=== PATIENT | female | born 1990 | race African-American/Black ===

== ENCOUNTER 2017-05-06 15:12 | Emergency (ER) | payer OTHER ==
[~2017-05-06] VITALS: Ht 157.5 cm; Wt 77.2 kg
[~2017-05-06 15:12] MED LIST: HYDR-3534 PO
[2017-05-06 15:14] VITALS: BP 117/62; PULSE 78; RESP 20; TEMP 98.8; O2SAT 100
--- NOTE | 2017-05-06 15:40 | PD ---
HPI Chief Complaint: Related Problem Time Seen by Provider: 15:24 Travel History International Travel<30 days: No Contact w/Intl Traveler<30days: No Traveled to known affect area: No History of Present Illness HPI C/O VAG SPOTTING, NO ACTUAL ABD CRAMPY PAIN, ONSET YESTERDAY, HAS AN UPCOMING OB APPT, NO ULTRASOUND DONE FOR LOCATION. DIAGNOSED AT CLINIC, TOLD SHE IS ABOUT 8 WEEKS GESTATION. PFSH Past Medical History ?: LMP: 03/10/18 : 1 Para: 0 : 1 Social History Alcohol Use: Yes Tobacco Use: No Substance Use: No Allergies-Medications (Allergen,Severity, Reaction): Coded Allergies: No Known Allergies (Verified , 05/06/17) Reported Meds & Prescriptions Reported Meds & Active Scripts Active No Active Prescriptions or Reported Medications Review of Systems Except as stated in HPI: all other systems reviewed are Neg Genitourinary: Positive: Vaginal Bleeding (SPOTTING IS VERY LIGHT) Physical Exam Narrative GENERAL: SKIN: Warm and dry. HEAD: Atraumatic. Normocephalic. EYES: Pupils equal and round. No scleral icterus. No injection or drainage. ENT: No nasal bleeding or discharge. Mucous membranes pink and moist. NECK: Trachea midline. No JVD. CARDIOVASCULAR: Regular rate and rhythm. RESPIRATORY: No accessory muscle use. Clear to auscultation. Breath sounds equal bilaterally. GASTROINTESTINAL: Abdomen soft, non-tender, nondistended. MUSCULOSKELETAL: Extremities without clubbing, cyanosis, or edema. No obvious deformities. NEUROLOGICAL: Awake and alert. No obvious cranial nerve deficits. Motor grossly within normal limits. Five out of 5 muscle strength in the arms and legs. Normal speech. PSYCHIATRIC: Appropriate mood and affect; insight and judgment normal. Data Data Last Documented VS Vital Signs Date Time Temp Pulse Resp B/P Pulse Ox O2 Delivery O2 Flow Rate FiO2 05/06/17 15:14 98.8 78 20 117/62 100 Room Air Orders Beta Hcg (Quant/Titer) (05/06/17 15:24) Complete Blood Count With Diff (05/06/17 15:24) Basic Metabolic Panel (Bmp) (05/06/17 15:24) Complete Rh (05/06/17 15:24) Urinalysis - C+S If Indicated (05/06/17 15:24) Iv Access Insert/Monitor (05/06/17 15:24) Us Pelvis (Ques Pr/Ect)W Trans (05/06/17 ) Labs Laboratory Tests Test 05/06/17 05/06/17 15:30 15:40 White Blood Count 8.4 TH/MM3 Red Blood Count 3.73 MIL/MM3 Hemoglobin 10.5 GM/DL Hematocrit 32.5 % Mean Corpuscular Volume 87.0 FL Mean Corpuscular Hemoglobin 28.2 PG Mean Corpuscular Hemoglobin 32.4 % Concent Red Cell Distribution Width 13.1 % Platelet Count 184 TH/MM3 Mean Platelet Volume 9.3 FL Neutrophils (%) (Auto) 67.8 % Lymphocytes (%) (Auto) 22.1 % Monocytes (%) (Auto) 9.1 % Eosinophils (%) (Auto) 0.7 % Basophils (%) (Auto) 0.3 % Neutrophils # (Auto) 5.7 TH/MM3 Lymphocytes # (Auto) 1.9 TH/MM3 Monocytes # (Auto) 0.8 TH/MM3 Eosinophils # (Auto) 0.1 TH/MM3 Basophils # (Auto) 0.0 TH/MM3 CBC Comment DIFF FINAL Differential Comment Sodium Level 138 MEQ/L Potassium Level 3.6 MEQ/L Chloride Level 106 MEQ/L Carbon Dioxide Level 25.9 MEQ/L Anion Gap 6 MEQ/L Blood Urea Nitrogen 11 MG/DL Creatinine 0.66 MG/DL Estimat Glomerular Filtration 131 ML/MIN Rate Random Glucose 75 MG/DL Calcium Level 8.6 MG/DL Human Chorionic Gonadotropin, [address]122 MIU/ML Quant Blood Type O POSITIVE Rho(D) Type POSITIVE Urine Color YELLOW Urine Turbidity CLEAR Urine pH 6.0 Urine Specific [place] 1.023 Urine Protein NEG mg/dL Urine Glucose (UA) NEG mg/dL Urine Ketones 10 mg/dL Urine Occult Blood NEG Urine Nitrite NEG Urine Bilirubin NEG Urine Urobilinogen LESS THAN 2.0 MG/DL Urine Leukocyte Esterase NEG Urine WBC LESS THAN 1 /hpf Urine Squamous Epithelial 1 /hpf Cells Urine Mucus FEW /lpf Microscopic Urinalysis Comment CULT NOT INDICATED MDM Medical Decision Making Medical Screen Exam Complete: Yes Emergency Medical Condition: Yes Medical Record Reviewed: Yes Differential Diagnosis UTI V ECTOPIC V IUP Narrative Course DURING EVALUATION FOUND TO HAVE NO UTI, RH POSITIVE, AND FINALLY ULTRASOUND SHOWED AN IUP....PT WILL BE D/C WITH THREATEN MISCARRIAGE AND ADVISED TO AVOID INTROITAL INSERTION AND TO FOLLOW UP WITH OB Diagnosis Primary Impression: Threatened Patient Instructions: General Instructions, Threatened Miscarriage (ED) Additional Instructions: your is in your uterus and you are about 7weeks and 4days . avoid sex, douching or placing tampons into vaginal canal until 1 week after bleeding stops, follow with your obgyn for further care. Scripts No Active Prescriptions or Reported Meds Disposition: DISCHARGE HOME Condition: Stable Wilfred Holm MD May 06, 2017 15:40
[2017-05-06 16:28] LABS: AUTOMATED NEUTROPHIL # 5.7 TH/MM3 (1.8-7.7); BASOPHIL % 0.3 % (0.0-2.0); EOSINOPHIL # 0.1 TH/MM3 (0-0.4); EOSINOPHIL % 0.7 % (0.0-4.0); HEMATOCRIT 32.5 % (35.0-46.0); HEMO FLAGS DIFF FINAL; LYMPH % 22.1 % (9.0-44.0); LYMPHOCYTE # 1.9 TH/MM3 (1.0-4.8); MEAN CORPUSCULAR HEMOGLOBIN 28.2 PG (27.0-34.0); MEAN CORPUSCULAR HGB CONC 32.4 % (32.0-36.0); MONO % 9.1 % (0.0-8.0); NEUT % 67.8 % (16.0-70.0); PLATELET COUNT 184 TH/MM3 (150-450); RED BLOOD COUNT 3.73 MIL/MM3 (4.00-5.30); RED CELL DISTRIBUTION WIDTH 13.1 % (11.6-17.2); WHITE BLOOD COUNT 8.4 TH/MM3 (4.0-11.0)
[2017-05-06 16:34] LABS: BLOOD, URINE NEG (NEG); COMMENT (UR) CULT NOT INDICATED; CULTURE IF INDICATED CULT NOT INDICATED; GLUCOSE,URINE NEG (NEG); KETONE, URINE 10 mg/dL (NEG); MUCUS URINE FEW /lpf (OCC); NITRITE,URINE NEG (NEG); SQUAMOUS EPITHELIAL CELL URINE 1 /hpf (0-5); URINE COLOR YELLOW (YELLW/STRAW)
[2017-05-06 16:41] LABS: BICARBONATE 25.9 MEQ/L (21.0-32.0); POTASSIUM 3.6 MEQ/L (3.5-5.1)
--- NOTE | 2017-05-06 18:32 | RADRPT ---
EXAM DATE/TIME: 05/06/2017 17:23 [facility] COMPARISON: No previous studies available for comparison. INDICATIONS : Bleeding. LAB(S): [facility] MEDICAL HISTORY : None. SURGICAL HISTORY : None. ENCOUNTER: Initial ACUITY: 1 day PAIN SCORE: 0/10 LOCATION: Bilateral pelvis MEASUREMENTS: UTERUS: 9.1 x 6.8 x 5.7 cm ENDOMETRIAL STRIPE: 13 mm RIGHT OVARY: 3.5 x 2.4 x 2.5 cm LEFT OVARY: 3.1 x 2.2 x 1.5 cm FREE FLUID: Trace CROWN RUMP LENGTH: 1.52 = 7 WKS 6 DAYS FHR: 150 BPM FINDINGS: UTERUS: Gestational sac is identified within the uterus. Approximate gestational age by mean sac diameter is 7 weeks 4 days. pole is identified with approximate gestational age by crown-rump length of 7 w eeks 6 days. heart activity is identified with a heart rate of 150 beats per minute. Yolk sac is seen. Nabothian cysts noted. RIGHT OVARY: Ovary contains no mass or significant cystic lesion. LEFT OVARY: Ovary contains no mass or significant cystic lesion. MISCELLANEOUS: Trace free fluid. CONCLUSION: Intrauterine identified. pole is seen. heart activity is identified with approx imate heart rate of 150 beats per minute. Andrew Schreiber MD on May 06, 2017 at 18:26 Board Certified Radiologist. This report was verified electronically.
[2017-05-24] MEDS ORDERED: PNV11TAB PO (10:02)
[2017-05-24] MEDS ORDERED: FERRTAB2 PO (10:02)
[2017-05-30] MEDS ORDERED: METR-1 PO (10:00)
== END 2017-05-06 18:41 | disposition home or self-care (01) ==
LOC: NEPD 15:12
DX: O20.0 Threatened abortion (principal); Z3A.08 8 weeks gestation of pregnancy
CPT/HCPCS: 76700; 76817; 80048; 81001; 84702; 85025; 86901; 99284

== ENCOUNTER 2017-05-10 16:32 | Emergency (ER) | payer OTHER ==
[~2017-05-10] VITALS: Ht 157.5 cm; Wt 76.0 kg
[2017-05-10 16:33] VITALS: BP 111/74; PULSE 77; TEMP 98.1; O2SAT 100
--- NOTE | 2017-05-10 16:37 | PD ---
Physical Exam Date Seen by Provider: May 10, 2017 Time Seen by Provider: 16:35 Narrative 27 YOBF WITH 9/10 SINGH SINCE LAST NIGHT. + N/V. H/O MIGRAINES. VS REVIEWED WAITING FOR BED PLACEMENT Data Data Last Documented VS Vital Signs Date Time Temp Pulse Resp B/P Pulse Ox O2 Delivery O2 Flow Rate FiO2 05/10/17 16:33 98.1 77 111/74 100 MDM Supervised Visit with EDDY: No Scripts No Active Prescriptions or Reported Meds Dk Sow May 10, 2017 16:37
[2017-05-10] MEDS ORDERED: ACETAMINOPHEN 325 MG TAB PO ONE (19:15)
[2017-05-10] MEDS ORDERED: diphenhydrAMINE HCL 50 MG/ML VIAL IVP ONE (19:15)
[2017-05-10] MEDS ORDERED: SODIUM CHLOR 0.9% 1000 ML INJ 1,000 ML IV ONE (19:15)
[2017-05-10] MEDS ORDERED: METOCLOPRAMIDE HCL 10 MG/2 ML VIAL IVP ONE (19:15)
--- NOTE | 2017-05-10 19:19 | PD ---
HPI Chief Complaint: Headache Time Seen by Provider: 19:10 Travel History International Travel<30 days: No Contact w/Intl Traveler<30days: No Traveled to known affect area: No History of Present Illness HPI 27 y/o chance for evaluation of headache. Symptoms started last night. She describes it as a pulsating right-sided frontal headache which is constant, associated with nausea and 2 episodes of emesis today. She reports a history of migraines, her current headache is consistent with migraines. She endorses some sensitivity to light, sound. She tried using Tylenol yesterday however she has not taken any medication today to help with her symptoms. She has no other complaints at this time. She was seen here 4 days ago and had an ultrasound revealing an acute uterine with heart tones. [facility] Past Medical History ?: LMP: 10 March 2017 : 1 Para: 0 : 1 Social History Alcohol Use: No Tobacco Use: No Substance Use: No Allergies-Medications (Allergen,Severity, Reaction): Coded Allergies: No Known Allergies (Verified , 05/10/17) Reported Meds & Prescriptions Reported Meds & Active Scripts Active No Active Prescriptions or Reported Medications Review of Systems Except as stated in HPI: all other systems reviewed are Neg Physical Exam Narrative GENERAL: Well-developed well-nourished female in no acute distress SKIN: Warm and dry. HEAD: Atraumatic. Normocephalic. EYES: Pupils equal and round. No scleral icterus. No injection or drainage. ENT: No nasal bleeding or discharge. Mucous membranes pink and moist. NECK: Trachea midline. No JVD. CARDIOVASCULAR: Regular rate and rhythm. No murmur appreciated. RESPIRATORY: No accessory muscle use. Clear to auscultation. Breath sounds equal bilaterally. GASTROINTESTINAL: Abdomen soft, non-tender, nondistended. Hepatic and splenic margins not palpable. MUSCULOSKELETAL: No obvious deformities. No clubbing. No cyanosis. No edema. NEUROLOGICAL: Awake and alert. No obvious cranial nerve deficits. Motor grossly within normal limits. Normal speech. PSYCHIATRIC: Appropriate mood and affect; insight and judgment normal. Data Data Last Documented VS Vital Signs Date Time Temp Pulse Resp B/P Pulse Ox O2 Delivery O2 Flow Rate FiO2 05/10/17 20:16 16 05/10/17 16:33 98.1 77 111/74 100 Orders Iv Access Insert/Monitor (05/10/17 19:15) Diphenhydramine Inj (Benadryl Inj) (05/10/17 19:15) Metoclopramide Inj (Reglan Inj) (05/10/17 19:15) Sodium Chlor 0.9% 1000 Ml Inj (Ns 1000 M (05/10/17 19:15) Acetaminophen (Tylenol) (05/10/17 19:15) MDM Medical Decision Making Medical Screen Exam Complete: Yes Emergency Medical Condition: Yes Medical Record Reviewed: Yes Differential Diagnosis Migraine, preeclampsia, tension headache, subarachnoid hemorrhage, pseudotumor cerebri Narrative Course 27 her old female currently 8 weeks presents with one-day history of right-sided frontal throbbing headache, nausea and vomiting, photophobia, consistent with her history of migraines. She has no neurologic deficits. The plan will be to provide the patient with IV fluids, Reglan, Benadryl as well as oral Tylenol. Upon reevaluation the patient's headache has resolved. She is stable for discharge. Diagnosis Primary Impression: Headache Qualified Code: R51 - Acute nonintractable headache, unspecified headache type Additional Instructions: Zofran for nausea. Stay well hydrated. Follow-up with primary care physician as needed and return for any emergent medical conditions. Med/Other Pt SpecificInfo: Prescription(s) given Scripts Ondansetron (Zofran)4 Mg Tab4 Mg PO Q6HR PRN (NAUSEA OR VOMITING) #12 TAB Ref 0 Prov:Wilfred Holm MD 05/10/17 Disposition: 01 DISCHARGE HOME Condition: Stable Maximino Dobson May 10, 2017 19:19
[2017-05-10 20:16] VITALS: RESP 16
[2017-05-10] MEDS ORDERED: ZOFR4TAB PO (20:35)
[2017-05-24] MEDS ORDERED: FERRTAB2 PO (10:02)
[2017-05-24] MEDS ORDERED: PNV11TAB PO (10:02)
[2017-05-30] MEDS ORDERED: METR-1 PO (10:00)
== END 2017-05-10 20:49 | disposition home or self-care (01) ==
LOC: NEPK 16:32
DX: O26.891 Other specified pregnancy related conditions, first trimester (principal); R51 Headache; R11.2 Nausea with vomiting, unspecified; H53.149 Visual discomfort, unspecified; Z3A.08 8 weeks gestation of pregnancy
CPT/HCPCS: 96361; 96374; 96375; 99284; J1200; J2765; J7030

== ENCOUNTER 2017-07-16 17:15 | Emergency (ER) | payer OTHER ==
[~2017-07-16] VITALS: Ht 157.5 cm; Wt 73.0 kg
[~2017-07-16 17:15] MED LIST changes: +FERRTAB2 PO; -HYDR-3534 PO; +METR-1 PO; +PNV11TAB PO; +ZOFR4TAB PO
[2017-07-16 17:24] VITALS: BP 106/60; PULSE 80; RESP 16; TEMP 98.4; O2SAT 98
--- NOTE | 2017-07-16 19:29 | PD ---
HPI Chief Complaint: Chest Pain Time Seen by Provider: 19:28 Travel History International Travel<30 days: No Contact w/Intl Traveler<30days: No Traveled to known affect area: No History of Present Illness HPI 27-year-old female came to the emergency room with history of epigastric pain going to the abdomen which is sudden onset while she was at work at around 4:30 PM. Patient says she had something similar once before and was diagnosed with gastritis. Patient is 18 weeks . No history of abdominal cramps or spotting. Patient says she vomited twice. Currently her pain scale is 7 and half out of 10. Vital signs are stable. She is otherwise a healthy person. This is A1. Since seemed uncomfortable. Patient says the pain is sharp and radiates to her upper back. No associated shortness of breath or syncopal episode. Patient is not a smoker. PFSH Past Medical History Narrative Medical List of her past medical, surgical, social and family history is reviewed from the nursing note. Immunizations Current: Yes ?: LMP: MARCH 10, 2017 : 1 Para: 0 : 1 Social History Alcohol Use: No Tobacco Use: No Substance Use: No Allergies-Medications (Allergen,Severity, Reaction): Coded Allergies: No Known Allergies (Verified , 07/19/17) Comments No known drug allergies. Reported Meds & Prescriptions Reported Meds & Active Scripts Active Zantac (Ranitidine HCl) 150 Mg Tab 150 Mg PO BID Reported Tylenol Extra Strength (Acetaminophen) 500 Mg Tablet 2 Tab PO DAILY PRN Narrative Medication List of her home medications reviewed from the nursing note. Review of Systems Except as stated in HPI: all other systems reviewed are Neg Cardiovascular: Positive: Chest Pain or Discomfort Gastrointestinal: Positive: Vomiting, Abdominal Pain Physical Exam Narrative GENERAL: Awake, alert, moderate distress SKIN: Focused skin assessment warm/dry. HEAD: Atraumatic. Normocephalic. EYES: Pupils equal and round. No scleral icterus. No injection or drainage. ENT: No nasal bleeding or discharge. Mucous membranes pink and moist. NECK: Trachea midline. No JVD. CARDIOVASCULAR: Regular rate and rhythm. No murmur appreciated. RESPIRATORY: No accessory muscle use. Clear to auscultation. Breath sounds equal bilaterally. GASTROINTESTINAL: Abdomen soft, non-tender, nondistended. Hepatic and splenic margins not palpable. Gravid uterus, fundus measured at the umbilicus level equal to 20 weeks MUSCULOSKELETAL: No obvious deformities. No clubbing. No cyanosis. No edema. NEUROLOGICAL: Awake and alert. No obvious cranial nerve deficits. Motor grossly within normal limits. Normal speech. PSYCHIATRIC: Appropriate mood and affect; insight and judgment normal. Data Data Last Documented VS Orders Orders Complete Blood Count With Diff (07/16/17 19:41) Comprehensive Metabolic Panel (07/16/17 19:41) Lipase (07/16/17:41) Urinalysis - C+S If Indicated (07/16/17 19:41) Iv Access Insert/Monitor (07/16/17 19:41) Ecg Monitoring (07/16/17:41) Oximetry (07/16/17:41) Ondansetron Inj (Zofran Inj) (07/16/17 19:45) Sodium Chlor 0.9% 1000 Ml Inj (Ns 1000 M (07/16/17 19:41) Sodium Chloride 0.9% Flush (Ns Flush) (07/16/17 19:45) Ranitidine Liq (Zantac Liq) (07/16/17 19:45) Acetaminophen (Tylenol) (07/16/17 20:45) Dextrose 5% In [place] 1000ml Inj (D5w 1000 (07/16/17 21:00) Troponin I (07/16/17 19:45) Electrocardiogram (07/16/17 17:52) Lactated Ringer's 1000 Ml Inj (Lr 1000 M (07/16/17 22:00) Ed Discharge Order (07/16/17 22:15) Labs Laboratory Tests Test 07/16/17 19:45 07/16/17 19:50 White Blood Count 12.9 TH/MM3 Red Blood Count 3.60 MIL/MM3 Hemoglobin 10.3 GM/DL Hematocrit 31.3 % Mean Corpuscular Volume 86.9 FL Mean Corpuscular Hemoglobin 28.5 PG Mean Corpuscular Hemoglobin Concent 32.8 % Red Cell Distribution Width 13.7 % Platelet Count 158 TH/MM3 Mean Platelet Volume 10.3 FL Neutrophils (%) (Auto) 83.6 % Lymphocytes (%) (Auto) 10.1 % Monocytes (%) (Auto) 5.8 % Eosinophils (%) (Auto) 0.1 % Basophils (%) (Auto) 0.4 % Neutrophils # (Auto) 10.8 TH/MM3 Lymphocytes # (Auto) 1.3 TH/MM3 Monocytes # (Auto) 0.8 TH/MM3 Eosinophils # (Auto) 0.0 TH/MM3 Basophils # (Auto) 0.1 TH/MM3 CBC Comment DIFF FINAL Differential Comment Blood Urea Nitrogen 9 MG/DL Creatinine 0.54 MG/DL Random Glucose 69 MG/DL Total Protein 6.9 GM/DL Albumin 3.1 GM/DL Calcium Level 8.4 MG/DL Alkaline Phosphatase 69 U/L Aspartate Amino Transf (AST/SGOT) 16 U/L Alanine Aminotransferase (ALT/SGPT) 24 U/L Total Bilirubin 0.2 MG/DL Sodium Level 136 MEQ/L Potassium Level 3.6 MEQ/L Chloride Level 105 MEQ/L Carbon Dioxide Level 23.5 MEQ/L Anion Gap 8 MEQ/L Estimat Glomerular Filtration Rate 165 ML/MIN Troponin I LESS THAN 0.02 NG/ML Lipase 67 U/L Urine Color YELLOW Urine Turbidity HAZY Urine pH 7.0 Urine Specific [place] 1.014 Urine Protein TRACE mg/dL Urine Glucose (UA) NEG mg/dL Urine Ketones 40 mg/dL Urine Occult Blood NEG Urine Nitrite NEG Urine Bilirubin NEG Urine Urobilinogen LESS THAN 2.0 MG/DL Urine Leukocyte Esterase NEG Urine RBC LESS THAN 1 /hpf Urine WBC 5 /hpf Urine Squamous Epithelial Cells 2 /hpf Urine Bacteria RARE /hpf Urine Mucus FEW /lpf Microscopic Urinalysis Comment CULT NOT INDICATED MDM Medical Decision Making Medical Screen Exam Complete: Yes Emergency Medical Condition: Yes Medical Record Reviewed: Yes Interpretation(s) Twelve-lead EKG was reviewed by me. Normal sinus rhythm, normal axis, nonspecific ST-T wave change. Heart rate of 78 bpm. Differential Diagnosis ACS, gastritis, biliary colic Narrative Course 10 PM blood test results are back. Her WBC is slightly elevated which could go with the . Chemistry and liver function tests are within normal limit. Patient was given IV fluid bolus, IV Zantac and by mouth Tylenol for her pain. UA came back and patient had some ketones. I've ordered a second liter of fluid bolus in the form of lactated Ringer. I went to reassess the patient and she said currently her pain is 3 out of 10. I am comfortable discharging her home at this point. heart tones were 150 bpm. Procedures EKG Prior to Arrival: No Diagnosis Primary Impression: Epigastric abdominal pain Additional Impressions: Gastritis Qualified Codes: K29.00 - Acute gastritis without bleeding Second trimester Referrals: Primary Care Physician 2 days Additional Instructions: Please follow-up with your OB in next couple days. Please have your OB order an outpatient gallbladder ultrasound for these recurrent pains. Your blood test results today otherwise was within acceptable limits. Return to the ER if the condition worsens or any other new concerns. Eat diet that is low in fat/ grease and spices. Take the medication as per the prescription direction. Med/Other Pt SpecificInfo: Prescription(s) given Scripts Ranitidine (Zantac) 150 Mg Tab 150 MG PO BID for Reduce Stomach Acid, #60 TAB 0 Refills Prov: Danuta Mendez MD 07/16/17 Disposition: 01 DISCHARGE HOME Condition: Stable Danuta Mendez MD Jul 16, 2017 19:29
[2017-07-16] MEDS ORDERED: ACET-822 PO (19:37)
[2017-07-16] MEDS ORDERED: SODIUM CHLOR 0.9% 1000 ML INJ 1,000 ML IV SCH (19:41)
[2017-07-16] MEDS ORDERED: ONDANSETRON HCL 4 MG/2 ML VIAL IVP ONE (19:45)
[2017-07-16] MEDS ORDERED: SODIUM CHLORIDE 0.9% FLUSH 10 ML FLUSH IV FLUSH PRN (19:45)
[2017-07-16] MEDS ORDERED: RANITIDINE HCL SYRUP 150 MG/10 ML UDC PO ONE (19:45)
[2017-07-16 20:28] LABS: AUTOMATED NEUTROPHIL # 10.8 TH/MM3 (1.8-7.7); BASOPHIL # 0.1 TH/MM3 (0-0.2); BASOPHIL % 0.4 % (0.0-2.0); EOSINOPHIL % 0.1 % (0.0-4.0); HEMATOCRIT 31.3 % (35.0-46.0); HEMOGLOBIN 10.3 GM/DL (11.6-15.3); LYMPH % 10.1 % (9.0-44.0); LYMPHOCYTE # 1.3 TH/MM3 (1.0-4.8); MEAN CELL VOLUME 86.9 FL (80.0-100.0); MEAN CORPUSCULAR HEMOGLOBIN 28.5 PG (27.0-34.0); MEAN CORPUSCULAR HGB CONC 32.8 % (32.0-36.0); MEAN PLATELET VOLUME 10.3 FL (7.0-11.0); MONO % 5.8 % (0.0-8.0); MONOCYTE # 0.8 TH/MM3 (0-0.9); NEUT % 83.6 % (16.0-70.0); PLATELET COUNT 158 TH/MM3 (150-450); RED CELL DISTRIBUTION WIDTH 13.7 % (11.6-17.2); WHITE BLOOD COUNT 12.9 TH/MM3 (4.0-11.0)
[2017-07-16] MEDS ORDERED: ACETAMINOPHEN 325 MG TAB PO ONE (20:45)
[2017-07-16 20:46] LABS: BACTERIA, URINE RARE /hpf; BILIRUBIN, URINE NEG (NEG); BLOOD, URINE NEG (NEG); GLUCOSE,URINE NEG (NEG); KETONE, URINE 40 mg/dL (NEG); MUCUS URINE FEW /lpf (OCC); NITRITE,URINE NEG (NEG); SQUAMOUS EPITHELIAL CELL URINE 2 /hpf (0-5); URINE COLOR YELLOW (YELLW/STRAW); URINE LEUKOCYTE ESTERASE NEG (NEG)
[2017-07-16 20:47] LABS: ALBUMIN 3.1 GM/DL (3.4-5.0); AST (GOT) 16 U/L (15-37); BICARBONATE 23.5 MEQ/L (21.0-32.0); BLOOD UREA NITROGEN 9 MG/DL (7-18); CALCIUM 8.4 MG/DL (8.5-10.1); CHLORIDE 105 MEQ/L (98-107); CREATININE 0.54 MG/DL (0.50-1.00); GLOMERULAR FILTRATION RATE 165 ML/MIN (>89); GLUCOSE,RANDOM 69 MG/DL (74-106); LIPASE 67 U/L (73-393); SODIUM (NA) 136 MEQ/L (136-145)
[2017-07-16 20:48] LABS: ALT (GPT) 24 U/L (10-53)
[2017-07-16 20:50] LABS: ALKALINE PHOSPHATASE 69 U/L (45-117); TOTAL BILIRUBIN ADULT 0.2 MG/DL (0.2-1.0); TOTAL PROTEIN 6.9 GM/DL (6.4-8.2)
[2017-07-16] MEDS ORDERED: DEXTROSE 5% IN WATE 1000ML INJ 1,000 ML IV ONE (21:00)
[2017-07-16 21:16] LABS: TROPONIN I LESS THAN 0.02 NG/ML (0.02-0.05)
[2017-07-16] MEDS ORDERED: LACTATED RINGER'S 1000 ML INJ 1,000 ML IV ONE (22:00)
[2017-07-16] MEDS ORDERED: ZANT150T2 PO (22:25)
[2017-07-16 22:45] VITALS: BP 120/78
--- NOTE | 2017-07-17 14:57 | EKG ---
Date Performed: 07/16/2017 Time Performed: 17:52:51 PTAGE: 27 years EKG: Sinus rhythm WITH SINUS ARRHYTHMIA NORMAL ECG INTERPRETATION BASED ON A DEFAULT AGE OF 41 YEARS NO PREVIOUS TRACING DOCTOR: Noah Melendez Interpretating Date/Time 07/17/2017 14:54:34
== END 2017-07-16 22:55 | disposition home or self-care (01) ==
LOC: NEPC 17:15
DX: O99.612 Diseases of the digestive system complicating pregnancy, second trimester (principal); K29.00 Acute gastritis without bleeding; Z3A.18 18 weeks gestation of pregnancy
CPT/HCPCS: 80053; 81001; 83690; 84484; 85025; 93005; 96361; 96374; 99284; J2405; J7030; J7120

== ENCOUNTER 2017-12-06 15:21 | Observation (INO) | payer MEDICAID, OTHER ==
[~2017-12-06 15:21] MED LIST changes: +ACET-822 PO; +IRON1CAP4 PO; -METR-1 PO; -PNV11TAB PO; +ZANT150T2 PO; -ZOFR4TAB PO; +[UNRECOGNIZED DRUG - CODE] PO
[2017-12-06] MEDS ORDERED: DEXTROSE 5%-LACTATED RING INJ 1,000 ML IV ONE (16:00)
[2017-12-06] MEDS ORDERED: LACTATED RINGER'S 1000 ML INJ 1,000 ML IV ONE (16:00)
[2017-12-06] MEDS ORDERED: ACETAMINOPHEN 325 MG TAB PO ONE (16:00)
[2017-12-06 16:59] LABS: HEMATOCRIT 30.1 % (35.0-46.0); HEMOGLOBIN 10.1 GM/DL (11.6-15.3); MEAN CELL VOLUME 82.3 FL (80.0-100.0); MEAN CORPUSCULAR HEMOGLOBIN 27.5 PG (27.0-34.0); MEAN CORPUSCULAR HGB CONC 33.4 % (32.0-36.0); MEAN PLATELET VOLUME 10.2 FL (7.0-11.0); PLATELET COUNT 158 TH/MM3 (150-450); RED BLOOD COUNT 3.66 MIL/MM3 (4.00-5.30); WHITE BLOOD COUNT 6.7 TH/MM3 (4.0-11.0)
--- NOTE | 2017-12-06 17:17 | PD ---
HPI Chief Complaint Fever Date Seen: Dec 06, 2017 Time Seen: 16:35 Travel History International Travel<30 Days: No Contact w/Intl Traveler<30Days: No History of Present Illness HPI Ms. Mares is a 27-year-old at 38/5 weeks gestation with a past medical history of alpha thalassemia presenting to the OB ED after being sent over from her OB providers office for fever. She stated that her symptoms started about a week ago when she developed a cough productive of greenish sputum. She also had rhinorrhea and body aches. She is also experiencing some lightheadedness and what she describes as "hot flashes.". She states that she never took her temperature at home. However, when she went to see her provider today her temperature in the office was 100.5 F. Her boyfriend has been sick. Obstetrically no contractions, no leakage of fluids, no vaginal bleeding, she is feeling baby move, no dysuria, no chest pain, no shortness of breath, no calf tenderness. Weeks Gestation: 38 Para: 0 : 2 History Past Medical History Narrative Medical Alpha thalassemia Obstetric History Obstetric History Elective by D&C in 2008 Past Surgical History Narrative Surgical D&C Family History Family History: Negative Social History Narrative Social History Lives by herself Works at [employer] Denies alcohol, tobacco, illicit drug use Alcohol Use: No Tobacco Use: No Substance Abuse: No Allergies-Medications (Allergen,Severity, Reaction): Coded Allergies: No Known Allergies (Verified Adverse Reaction, Unknown, 10/11/17) Home Meds Active Scripts Multi-Vit/Iron-Folic [id number] C (Ferralet) 90-1-0.012-120 mg Tab, 1 CAPLET PO DAILY for 30 Days, #30 CAPLET 3 Refills Prov:Piper Cedillo CNM [employer]ING TABLE WORK[employer] 09/12/17 Docusate Sodium (Col-Rite) 250 Mg Capsule, 1 CAP PO DAILY for 30 Days, #30 CAP 2 Refills Prov:Piper Cedillo CNM [employer]ING [employer] WORK[employer] 08/15/17 [id number] (Chromagen Softgel) 75-60-1 Mg Capsule, 1 CAP PO DAILY for Nutritional Supplement for 30 Days, #30 CAP 3 Refills Prov:Piper Cedillo CNM [employer] WORK[employer] 08/15/17 Ranitidine (Zantac) 150 Mg Tab, 150 MG PO BID for Reduce Stomach Acid, #60 TAB 0 Refills Prov:Danuta Mendez MD 07/16/17 Reported Medications Acetaminophen (Tylenol Extra Strength) 500 Mg Tablet, 2 TAB PO DAILY Y for PAIN SCALE 3 TO 5 07/16/17 Review of Systems General / Constitutional: Fever, Weight Loss, No: Chills Eyes: No: Blurred Vision HENT: Headaches, Lightheadedness Cardiovascular: No: Chest Pain or Discomfort Respiratory: Cough, No: Short of Breath Gastrointestinal: No: Nausea, Vomiting, Diarrhea, Constipation Genitourinary: No: Dysuria Musculoskeletal: No: Weakness Skin: No Rash Physical Exam Narrative GENERAL: Well-nourished, well-developed patient. SKIN: Warm and dry. HEAD: Normocephalic and atraumatic. EYES: No scleral icterus. No injection or drainage. ENT: No nasal drainage noted. Mucous membranes pink. Airway patent. NECK: Supple, trachea midline. No JVD. CARDIOVASCULAR: Regular rate and rhythm without murmurs, gallops, or rubs. RESPIRATORY: Breath sounds equal bilaterally. No accessory muscle use. BREASTS: Bilateral exam showed no masses , no retractions, no nipple discharge. ABDOMEN/GI: Abdomen soft, non-tender, bowel sounds present, no rebound, no guarding Gravid to 38 weeks size FHT's: Category: 1 Baseline: 150 Reactive: some accelerations Variability: moderate Decels: none EXTREMITIES: No cyanosis or edema. BACK: Nontender without obvious deformity. No CVA tenderness. NEUROLOGICAL: Awake and alert. Motor and sensory grossly within normal limits. Five out of 5 muscle strength in all muscle groups. Normal speech. Data Data Orders Orders Vital Signs (Adult) .ON ADMISSION (12/06/17 15:53) ^ Labor Status (12/06/17 15:53) ^ Non Stress Test (12/06/17 15:53) Cbc No Diff, Includes Plts (12/06/17 15:53) Comprehensive Metabolic Panel (12/06/17 15:53) Acetaminophen (Tylenol) (12/06/17 16:00) Dextrose 5%-Lactated Ring Inj (D5-Lr Inj (12/06/17 16:00) Influenzae A/B Antigen (12/06/17 15:53) Lactated Ringer's 1000 Ml Inj (Lr 1000 M (12/06/17 16:00) Labs Laboratory Tests Test 12/06/17 16:09 Date/Time Source Procedure Growth Status 12/06/17 16:09 Nasal Washing Influenza Types A,B Antigen (MIGUELINA) Pending Received MDM Plan 27-year-old at 38/5 weeks gestation presenting with URI symptoms and fever of 1 week duration. Patient likely has a viral illness [facility] FHT shows category 1 tracing -Influenza rapid testing shows influenza A positive, due to patient being , which is categorized as high risk by the CDC, will start Tamiflu treatment even though outside 48hour window -One dose of Tamiflu 75mg now -CBC shows no leukocytosis, CMP pending -UA pending [facility]DW Dr. Hernández Diagnosis Diagnosis: Primary Impression: Influenza A Kina Soria MD R1 Dec 06, 2017 17:17
[2017-12-06 17:19] LABS: BACTERIA, URINE RARE /hpf; BILIRUBIN, URINE NEG (NEG); BLOOD, URINE NEG (NEG); GLUCOSE,URINE NEG (NEG); KETONE, URINE TRACE mg/dL (NEG); MUCUS URINE FEW /lpf (OCC); NITRITE,URINE NEG (NEG); PH, URINE 6.5 (5.0-8.5); SQUAMOUS EPITHELIAL CELL URINE 1 /hpf (0-5); URINE COLOR YELLOW (YELLW/STRAW); URINE LEUKOCYTE ESTERASE NEG (NEG)
[2017-12-06 17:23] LABS: ALBUMIN 2.8 GM/DL (3.4-5.0); ALT (GPT) 15 U/L (10-53); AST (GOT) 17 U/L (15-37); BICARBONATE 25.3 MEQ/L (21.0-32.0); BLOOD UREA NITROGEN 8 MG/DL (7-18); CALCIUM 8.5 MG/DL (8.5-10.1); CHLORIDE 102 MEQ/L (98-107); CREATININE 0.62 MG/DL (0.50-1.00); GLOMERULAR FILTRATION RATE 141 ML/MIN (>89); GLUCOSE,RANDOM 65 MG/DL (74-106); SODIUM (NA) 139 MEQ/L (136-145)
[2017-12-06 17:25] LABS: ALKALINE PHOSPHATASE 160 U/L (45-117); TOTAL BILIRUBIN ADULT 0.3 MG/DL (0.2-1.0)
[2017-12-06] MEDS ORDERED: OSELTAMIVIR PHOSPHATE 75 MG CAP PO ONE (17:30)
[2017-12-06] MEDS ORDERED: SODIUM CHLORIDE 0.9% FLUSH 10 ML FLUSH IV FLUSH PRN (17:45)
[2017-12-06] MEDS ORDERED: ONDANSETRON HCL 4 MG/2 ML VIAL IV PUSH PRN (17:45)
[2017-12-06] MEDS ORDERED: ONDANSETRON ODT 4 MG TAB PO PRN (17:45)
[2017-12-06] MEDS ORDERED: ZOLPIDEM TARTRATE 5 MG TAB PO PRN (17:45)
--- NOTE | 2017-12-06 18:01 | HHI.HP ---
History & Physical H&P Patient Name: Cadence Mares Unit Number: [id number] Date of : 1990 Patient Status: Admitted Inpatient (obs) Attending Doctor: Vandana Hernández MD HPI HPI Chief Complaint Fever Date Seen: Dec 06, 2017 Time Seen: 16:35 Travel History International Travel<30 Days: No Contact w/Intl Traveler<30Days: No History of Present Illness HPI Ms. Mares is a 27-year-old at 38/5 weeks gestation with a past medical history of alpha thalassemia presenting to the OB ED after being sent over from her OB providers office for fever. She stated that her symptoms started about a week ago when she developed a cough productive of greenish sputum. She also had rhinorrhea and body aches. She is also experiencing some lightheadedness and what she describes as "hot flashes.". She states that she never took her temperature at home. However, when she went to see her provider today her temperature in the office was 100.5 F. Her boyfriend has been sick with the same symptoms. There are no aggravating or alleviating factors. Obstetrically no contractions, no leakage of fluids, no vaginal bleeding, she is feeling good movement, no dysuria, no chest pain, no shortness of breath, no calf tenderness. Weeks Gestation: 38 Para: 0 : 2 History (Limited) History Past Medical History Narrative Medical Alpha thalassemia Obstetric History Obstetric History Elective by D&C in 2008 Past Surgical History Narrative Surgical D&C Family History Family History: Negative Social History Narrative Social History Lives by herself Works at [employer] Denies alcohol, tobacco, illicit drug use Alcohol Use: No Tobacco Use: No Substance Abuse: No Allergies-Medications Allergies-Medications (Allergen,Severity, Reaction): Coded Allergies: No Known Allergies (Verified Adverse Reaction, Unknown, 10/11/17) Home Meds Active Scripts Multi-Vit/Iron-Folic Hnlo-H00-Zcu C (Ferralet) 90-1-0.012-120 mg Tab, 1 CAPLET PO DAILY for 30 Days, #30 CAPLET 3 Refills Prov:Piper Cedillo CNM [facility] 09/12/17 Docusate Sodium (Col-Rite) 250 Mg Capsule, 1 CAP PO DAILY for 30 Days, #30 CAP 2 Refills Prov:CedilloPiper CNM [facility] 08/15/17 Yttk-W-Avgcnd-B6-B12-Zn (Chromagen Softgel) 75-60-1 Mg Capsule, 1 CAP PO DAILY for Nutritional Supplement for 30 Days, #30 CAP 3 Refills Prov:Piper Cedillo CNM [facility] 08/15/17 Ranitidine (Zantac) 150 Mg Tab, 150 MG PO BID for Reduce Stomach Acid, #60 TAB 0 Refills Prov:Danuta Mendez MD 07/16/17 Reported Medications Acetaminophen (Tylenol Extra Strength) 500 Mg Tablet, 2 TAB PO DAILY Y for PAIN SCALE 3 TO 5 07/16/17 ROS Review of Systems General / Constitutional: Fever, Weight Loss, No: Chills Eyes: No: Blurred Vision HENT: Headaches, Lightheadedness Cardiovascular: No: Chest Pain or Discomfort Respiratory: Cough, No: Short of Breath Gastrointestinal: No: Nausea, Vomiting, Diarrhea, Constipation Genitourinary: No: Dysuria Musculoskeletal: No: Weakness Skin: No Rash Complete ROS negative except as noted in HPI and above Physical Exam Physical Exam Narrative GENERAL: Well-nourished, well-developed patient. SKIN: Warm and dry. HEAD: Normocephalic and atraumatic. EYES: No scleral icterus. No injection or drainage. ENT: No nasal drainage noted. Mucous membranes pink. Airway patent. NECK: Supple, trachea midline. No JVD. CARDIOVASCULAR: Regular rate and rhythm without murmurs, gallops, or rubs. RESPIRATORY: Breath sounds equal bilaterally. No accessory muscle use. BREASTS: deferred ABDOMEN/GI: Abdomen soft, non-tender, bowel sounds present, no rebound, no guarding Gravid to 38 weeks size FHT's: Category: 1 Baseline: 150 Reactive: some accelerations Variability: moderate Decels: none EXTREMITIES: No cyanosis or edema. BACK: Nontender without obvious deformity. No CVA tenderness. NEUROLOGICAL: Awake and alert. Motor and sensory grossly within normal limits. Five out of 5 muscle strength in all muscle groups. Normal speech. Musculoskeletal: grossly normal ROM, gait, muscle strengthe Psychiatric: grossly normal memory, affect Data Data Data Orders Orders Vital Signs (Adult) .ON ADMISSION (12/06/17 15:53) ^ Labor Status (12/06/17 15:53) ^ Non Stress Test (12/06/17 15:53) Cbc No Diff, Includes Plts (12/06/17 15:53) Comprehensive Metabolic Panel (12/06/17 15:53) Acetaminophen (Tylenol) (12/06/17 16:00) Dextrose 5%-Lactated Ring Inj (D5-Lr Inj (12/06/17 16:00) Influenzae A/B Antigen (12/06/17 15:53) Lactated Ringer's 1000 Ml Inj (Lr 1000 M (12/06/17 16:00) Labs Laboratory Tests Test 12/06/17 16:09 Date/Time Source Procedure Growth Status 12/06/17 16:09 Nasal Washing Influenza Types A,B Antigen (MIGUELINA) Pending Received MDM MDM Assessment/Plan: 1. IUP at 38/5 weeks gestation 2. Influenza A positive: presenting with URI symptoms and fever of 1 week duration, will Rx Tamiflu 75 mg twice a day as per CDC recommendations. Even though the patient's outside the 48 hour window of onset of symptoms, the CBC is recommending treatment for patient's in high-risk category such as . We'll managed with comfort measures overnight and likely DC in the a.m. 3. well-being: Overall reassuring heart rate but tachycardia initially noted and although accelerations are noted, NST does not appear to be clearly reactive. We will monitor continuously overnight and likely DC in the a.m. 4. No evidence of active labor, [facility] 5. History of alpha thalassemia 6. History of chronic anemia 7. Borderline hypokalemia: will Rx KCl 40 meq 8. UA: negative except ketones Diagnosis Diagnosis: Primary Impression: Influenza A Kina Soria MD R1 Dec 06, 2017 17:17 Vandana Hernández MD Dec 06, 2017 18:01
[2017-12-06 18:07] VITALS: BP 106/62; PULSE 101; TEMP 99
[2017-12-06 18:08] VITALS: RESP 20
[2017-12-06] MEDS ORDERED: POTASSIUM CHLORIDE 20 MEQ CONTROLLED RELEASE TAB PO ONE (18:15)
[2017-12-06] MEDS ORDERED: OSELTAMIVIR PHOSPHATE 75 MG CAP PO SCH (18:30)
[2017-12-06 20:00] VITALS: RESP 18; TEMP 99.4
[2017-12-06] MEDS: ACETAMINOPHEN 325 MG TAB PO PRN (20:00)
[2017-12-06] MEDS ORDERED: SODIUM CHLORIDE 0.9% FLUSH 10 ML FLUSH IV FLUSH SCH (21:00)
[2017-12-06 23:53] VITALS: BP 105/63; PULSE 107
[2017-12-07] VITALS (7 sets, daily range): BP systolic 89–90; BP diastolic 45–48; PULSE 93–100; RESP 16–18; TEMP 98.7–100.3
[2017-12-07] MEDS ORDERED: CYCLOBENZAPRINE HCL 10 MG TAB PO ONE
[2017-12-07] MEDS: ACETAMINOPHEN 325 MG TAB PO PRN ×3 (00:40→05:00)
[2017-12-07] MEDS: LACTATED RINGER'S 1000 ML INJ 1,000 ML IV SCH ×2 (00:45→06:25)
[2017-12-07] MEDS ORDERED: LACTATED RINGER'S 1000 ML INJ 1,000 ML IV ONE (00:45)
[2017-12-07] MEDS ORDERED: OSELTAMIVIR PHOSPHATE 75 MG CAP PO SCH (06:00)
--- NOTE | 2017-12-07 10:06 | PD.OB.ANTE ---
Subjective Interval History Patient seen and examined this morning. Patient states that she is doing better this morning. Has no complaints. Antepartum ROS: Reports: movement normal, Denies: Loss of fluid, Vaginal bleeding, Contractions Objective Vital Signs Vital Signs Date Time Temp Pulse Resp B/P (MAP) Pulse Ox O2 Delivery O2 Flow Rate FiO2 12/07/17 08:00 98.9 16 12/07/17 07:44 100 90/45 (60) 12/07/17 05:00 99.3 12/07/17 00:00 100.3 18 12/06/17 23:53 107 105/63 (77) 12/06/17 20:00 99.4 12/06/17 20:00 18 12/06/17 18:08 20 12/06/17 18:07 99.0 12/06/17 18:07 101 106/62 (77) Lab & Micro Results Test 12/06/17 15:50 12/06/17 16:09 Urine Color YELLOW Urine Turbidity HAZY Urine pH 6.5 Urine Specific [place] 1.026 Urine Protein 30 mg/dL Urine Glucose (UA) NEG mg/dL Urine Ketones TRACE mg/dL Urine Occult Blood NEG Urine Nitrite NEG Urine Bilirubin NEG Urine Urobilinogen 4.0 MG/DL Urine Leukocyte Esterase NEG Urine WBC 1 /hpf Urine Squamous Epithelial Cells 1 /hpf Urine Bacteria RARE /hpf Urine Mucus FEW /lpf Microscopic Urinalysis Comment CULT NOT INDICATED White Blood Count 6.7 TH/MM3 Red Blood Count 3.66 MIL/MM3 Hemoglobin 10.1 GM/DL Hematocrit 30.1 % Mean Corpuscular Volume 82.3 FL Mean Corpuscular Hemoglobin 27.5 PG Mean Corpuscular Hemoglobin Concent 33.4 % Red Cell Distribution Width 16.0 % Platelet Count 158 TH/MM3 Mean Platelet Volume 10.2 FL Blood Urea Nitrogen 8 MG/DL Creatinine 0.62 MG/DL Random Glucose 65 MG/DL Total Protein 7.0 GM/DL Albumin 2.8 GM/DL Calcium Level 8.5 MG/DL Alkaline Phosphatase 160 U/L Aspartate Amino Transf (AST/SGOT) 17 U/L Alanine Aminotransferase (ALT/SGPT) 15 U/L Total Bilirubin 0.3 MG/DL Sodium Level 139 MEQ/L Potassium Level 3.5 MEQ/L Chloride Level 102 MEQ/L Carbon Dioxide Level 25.3 MEQ/L Anion Gap 12 MEQ/L Estimat Glomerular Filtration Rate 141 ML/MIN Date/Time Source Procedure Growth Status 12/06/17 16:09 Nasal Washing Influenza Types A,B Antigen (MIGUELINA) - Final Positive For Flu A Antigen Complete Physical Exam GENERAL: Well-nourished, well-developed patient. CARDIOVASCULAR: Regular rate and rhythm without murmurs, gallops, or rubs. RESPIRATORY: Breath sounds equal bilaterally. No accessory muscle use. ABDOMEN/GI: Abdomen soft, non-tender. FHT's: Category: 1 Baseline: 140s Reactive: minimally Variability: moderate Decels: none EXTREMITIES: No cyanosis or edema, non-tender, without signs of DVT. Assessment and Plan Problem List: (1) Intrauterine ICD Codes: Z34.90 - Encounter for supervision of normal , unspecified , unspecified trimester Status: Chronic (2) Influenza A ICD Codes: J10.1 - Influenza due to other identified influenza virus with other respiratory manifestations Status: Acute Assessment and Plan 27yo AA female at 38/6 weeks gestation with PMH of Alpha Thalassemia presenting with URI sx. -Influenza A positive: presented with URI symptoms and fever of 1 week duration , will Rx Tamiflu 75 mg twice a day as per CDC recommendations. Even though the patient's outside the 48 hour window of onset of symptoms, the CBC is recommending treatment for patient's in high-risk category such as . - well-being: Overall reassuring heart rate in the 140s this morning. -Will conduct OB U/S with BPP this AM -No evidence of active labor, [facility] -UA: negative except ketones Will possibly D/C today, if afebrile for 24 hrs Kina Soria MD R1 Dec 07, 2017 10:06
--- NOTE | 2017-12-07 14:18 | HHI.DCPOC ---
Discharge Care Plan Diagnosis: (1) Influenza A Report Symptoms to Your Doctor -Temperature above 100.5 degrees -Unusual pain or calf pain -Increased vaginal bleeding -Painful or difficulty urinating -Feelings of extreme sadness or anxiety after 2 weeks Goals to Promote Your Health * To prevent worsening of your condition and complications * To maintain your health at the optimal level Directions to Meet Your Goals Take your medications as prescribed Follow your dietary instruction Follow activity as directed Ensure plenty of rest for recovery Drink fluids for hydration Keep your appointments as scheduled Take your immunizations and boosters as scheduled If your symptoms worsen call your PCP, if no PCP go to Urgent Care Center or Emergency Room Smoking is Dangerous to Your Health. Avoid second hand smoke Call the 24-hour crisis hotline for domestic abuse at Kina Soria MD R1 Dec 07, 2017 14:18
[2017-12-07] MEDS ORDERED: OSEL75 PO (14:24)
== END 2017-12-07 16:30 | disposition home or self-care (01) ==
LOC: HOBED 15:21 → H2EA 17:37
PROVIDERS: ADMIT Obstetrics & Gynecology; ATTEND Obstetrics & Gynecology
DX: O99.52 Diseases of the respiratory system complicating childbirth (principal); J10.1 Influenza due to other identified influenza virus with other respiratory manifestations; O99.284 Endocrine, nutritional and metabolic diseases complicating childbirth; E87.6 Hypokalemia; Z3A.38 38 weeks gestation of pregnancy
CPT/HCPCS: 59025; 76816; 76819; 80053; 81001; 85027; 87804; 96360; 96361; 99285; G0378; J7120

== ENCOUNTER 2017-12-09 19:43 | Emergency (ER) | payer MEDICAID ==
[~2017-12-09 19:43] MED LIST changes: +OSEL75 PO
--- NOTE | 2017-12-09 20:20 | PD ---
HPI Chief Complaint Complaints of abdominal pain Date Seen: Dec 09, 2017 Time Seen: 20:14 Travel History International Travel<30 Days: No Contact w/Intl Traveler<30Days: No Known Affected Area: No History of Present Illness HPI 27-year-old black female at 39 weeks presents complaining of abdominal pain and contractions started this morning. Denies bleeding or rupture membranes. heart rate tracing is reactive. And she is having an occasional irregular contractions. Weeks Gestation: 39 Para: 0 : 2 Miscarriage: 1 : 1 History Obstetric History Obstetric History 1 elective termination Past Surgical History Narrative Surgical D&C for termination Social History Alcohol Use: No Tobacco Use: No Substance Abuse: No Allergies-Medications (Allergen,Severity, Reaction): Coded Allergies: No Known Allergies (Verified Adverse Reaction, Unknown, 10/11/17) Home Meds Active Scripts Oseltamivir (Tamiflu) 75 Mg Cap, 75 MG PO Q12H for 4 Days, #8 CAP Prov:Kina Soria MD R1 12/07/17 Multi-Vit/Iron-Folic Dbrh-T60-Mre C (Ferralet) 90-1-0.012-120 mg Tab, 1 CAPLET PO DAILY for 30 Days, #30 CAPLET 3 Refills Prov:Piper Cedillo CNM [facility] 09/12/17 Docusate Sodium (Col-Rite) 250 Mg Capsule, 1 CAP PO DAILY for 30 Days, #30 CAP 2 Refills Prov:Piper Cedillo CNM [facility] 08/15/17 Jtar-E-Hafdyy-B6-B12-Zn (Chromagen Softgel) 75-60-1 Mg Capsule, 1 CAP PO DAILY for Nutritional Supplement for 30 Days, #30 CAP 3 Refills Prov:Piper Cedillo CNM [facility] 08/15/17 Ranitidine (Zantac) 150 Mg Tab, 150 MG PO BID for Reduce Stomach Acid, #60 TAB 0 Refills Prov:Danuta Mendez MD 07/16/17 Reported Medications Acetaminophen (Tylenol Extra Strength) 500 Mg Tablet, 2 TAB PO DAILY Y for PAIN SCALE 3 TO 5 07/16/17 Review of Systems General / Constitutional: No: Fever, Weight Gain, Chills, Other Eyes: No: Diploplia, Blurred Vision, Visual changes, Pain, Photophobia HENT: No: Headaches, Vertigo, Lightheadedness Cardiovascular: No: Irregular Rhythm, Chest Pain or Discomfort, Palpitations, Tachycardia, Syncope, Varicosities, Edema, Cyanosis Respiratory: No: Cough, Short of Breath, Other Gastrointestinal: Abdominal Pain, No: Nausea, Vomiting, Diarrhea Genitourinary: No: Decreased Urinary Output, Oliguria Musculoskeletal: No: Limited ROM, Weakness, Cramping, Edema, Pain Skin: No Rash, No Itching, No Dryness, No Lumps, No Change in Pigmentation, No Change in Nails, No Alopecia, No Lesions Neurologic: No: Weakness, Dizziness, Syncope, Focal Abnormalities, Coordination Problem, Headache, Slurred Speech, Seizures Psychiatric: No: Depression, Suicidal Ideations, Homicidal Ideation Endocrine: No: Heat Intolerance, Cold Intolerance, Polydipsia, Polyuria, Other Physical Exam Narrative GENERAL: Well-nourished, well-developed patient. SKIN: Warm and dry. HEAD: Normocephalic and atraumatic. EYES: No scleral icterus. No injection or drainage. ENT: No nasal drainage noted. Mucous membranes pink. Airway patent. NECK: Supple, trachea midline. No JVD. CARDIOVASCULAR: Regular rate and rhythm without murmurs, gallops, or rubs. RESPIRATORY: Breath sounds equal bilaterally. No accessory muscle use. BREASTS: Bilateral exam showed no masses , no retractions, no nipple discharge. ABDOMEN/GI: Abdomen soft, non-tender, bowel sounds present, no rebound, no guarding Gravid to [-39] weeks size Fundal Height: [39-] GENITOURINARY: External Genitalia: intact and normal in appearance BUS glands: [-] Cervix: [post-] Dilatation: [-2] Effacement: [70-] Station: [-3] Presentation: [-vtx] Membranes: [intact ] Uterine Contractions: [occasional-] FHT's: Category: [1-] Baseline: [133-] Reactive: [-R] Variability: [mod-] Decels: [-none] EXTREMITIES: No cyanosis or edema. BACK: Nontender without obvious deformity. No CVA tenderness. NEUROLOGICAL: Awake and alert. Motor and sensory grossly within normal limits. Five out of 5 muscle strength in all muscle groups. Normal speech. MDM Interpretation(s) Patient is a 27-year-old white female at 39 weeks [facility] presents complaining of contraction pain. Pains began earlier this morning continued to the day. She was recently checked and was 1 cm, tonight she is 2 cm and 70%. heart rate tracings reactive and she is having occasional contraction on the monitor Plan Plan I M Demerol/Phenergan for pain and sedation Bedrest at home Return for increased pain, bleeding, or rupture membranes Diagnosis Diagnosis: Primary Impression: Abdominal pain during in third trimester Disposition: 01 DISCHARGE HOME Condition: Stable Lalo Cavanaugh II, MD Dec 09, 2017 20:20
[2017-12-09] MEDS ORDERED: PROMETHAZINE INJ 25 MG/ML VIAL IM ONE (20:30)
[2017-12-09] MEDS ORDERED: MEPERIDINE HCL 50 MG/ML VIAL IM ONE (20:30)
== END 2017-12-09 21:06 | disposition home or self-care (01) ==
LOC: HOBED 19:43
DX: O26.893 Other specified pregnancy related conditions, third trimester (principal); R10.9 Unspecified abdominal pain; Z3A.39 39 weeks gestation of pregnancy
CPT/HCPCS: 59025; 96372; 99283; J2175; J2550

== ENCOUNTER 2017-12-10 01:02 | Inpatient (IN) | payer MEDICAID ==
[2017-12-10] VITALS (13 sets, daily range): BP systolic 94–124; BP diastolic 51–74; PULSE 65–95; RESP 18; TEMP 97.8–97.9; O2SAT 97
[2017-12-10] MEDS ORDERED: LACTATED RINGER'S 1000 ML INJ 1,000 ML IV PRN (01:20)
--- NOTE | 2017-12-10 01:20 | HHI.HP ---
History & Physical H&P OB ED Note (Detail) Patient Name: Cadence Mares Unit Number: [id number] Date of : 1990 Patient Status: Departed Emergency Room Attending Doctor: Lalo Cavanaugh II, MD HPI HPI Chief Complaint Complaints of abdominal pain Date Seen: Dec 09, 2017 Time Seen: 20:14 Travel History International Travel<30 Days: No Contact w/Intl Traveler<30Days: No Known Affected Area: No History of Present Illness HPI 27-year-old black female at 39 weeks presents complaining of abdominal pain and contractions started this morning. Denies bleeding or rupture membranes. heart rate tracing is reactive. presents at 10 cm Weeks Gestation: 39 Para: 0 : 2 Miscarriage: 1 : 1 History (Limited) History Obstetric History Obstetric History 1 elective termination Past Surgical History Narrative Surgical D&C for termination Social History Alcohol Use: No Tobacco Use: No Substance Abuse: No Allergies-Medications Allergies-Medications (Allergen,Severity, Reaction): Coded Allergies: No Known Allergies (Verified Adverse Reaction, Unknown, 10/11/17) Home Meds Active Scripts Oseltamivir (Tamiflu) 75 Mg Cap, 75 MG PO Q12H for 4 Days, #8 CAP Prov:Kina Soria MD R1 12/07/17 Multi-Vit/Iron-Folic Yxue-I51-Olv C (Ferralet) 90-1-0.012-120 mg Tab, 1 CAPLET PO DAILY for 30 Days, #30 CAPLET 3 Refills Prov:Piper Cedillo CNM [facility] 09/12/17 Docusate Sodium (Col-Rite) 250 Mg Capsule, 1 CAP PO DAILY for 30 Days, #30 CAP 2 Refills Prov:Piper Cedillo CNM [employer] 08/15/17 Puyy-Z-Ksxhqe-B6-B12-Zn (Chromagen Softgel) 75-60-1 Mg Capsule, 1 CAP PO DAILY for Nutritional Supplement for 30 Days, #30 CAP 3 Refills Prov:Piper Cedillo CNM [facility] 08/15/17 Ranitidine (Zantac) 150 Mg Tab, 150 MG PO BID for Reduce Stomach Acid, #60 TAB 0 Refills Prov:Danuta Mendez MD 07/16/17 Reported Medications Acetaminophen (Tylenol Extra Strength) 500 Mg Tablet, 2 TAB PO DAILY Y for PAIN SCALE 3 TO 5 07/16/17 ROS Review of Systems General / Constitutional: No: Fever, Weight Gain, Chills, Other Eyes: No: Diploplia, Blurred Vision, Visual changes, Pain, Photophobia HENT: No: Headaches, Vertigo, Lightheadedness Cardiovascular: No: Irregular Rhythm, Chest Pain or Discomfort, Palpitations, Tachycardia, Syncope, Varicosities, Edema, Cyanosis Respiratory: No: Cough, Short of Breath, Other Gastrointestinal: Abdominal Pain, No: Nausea, Vomiting, Diarrhea Genitourinary: No: Decreased Urinary Output, Oliguria Musculoskeletal: No: Limited ROM, Weakness, Cramping, Edema, Pain Skin: No Rash, No Itching, No Dryness, No Lumps, No Change in Pigmentation, No Change in Nails, No Alopecia, No Lesions Neurologic: No: Weakness, Dizziness, Syncope, Focal Abnormalities, Coordination Problem, Headache, Slurred Speech, Seizures Psychiatric: No: Depression, Suicidal Ideations, Homicidal Ideation Endocrine: No: Heat Intolerance, Cold Intolerance, Polydipsia, Polyuria, Other Physical Exam Physical Exam Narrative GENERAL: Well-nourished, well-developed patient. SKIN: Warm and dry. HEAD: Normocephalic and atraumatic. EYES: No scleral icterus. No injection or drainage. ENT: No nasal drainage noted. Mucous membranes pink. Airway patent. NECK: Supple, trachea midline. No JVD. CARDIOVASCULAR: Regular rate and rhythm without murmurs, gallops, or rubs. RESPIRATORY: Breath sounds equal bilaterally. No accessory muscle use. BREASTS: Bilateral exam showed no masses , no retractions, no nipple discharge. ABDOMEN/GI: Abdomen soft, non-tender, bowel sounds present, no rebound, no guarding Gravid to [-39] weeks size Fundal Height: [39-] GENITOURINARY: External Genitalia: intact and normal in appearance BUS glands: [-] Cervix: [post-] Dilatation: [-10] Effacement: 100] Station: [- 2] Presentation: [-vtx] Membranes: [i SROM ] Uterine Contractions: reg-] FHT's: Category: [1-] Baseline: [133-] Reactive: [-R] Variability: [mod-] Decels: [-none] EXTREMITIES: No cyanosis or edema. BACK: Nontender without obvious deformity. No CVA tenderness. NEUROLOGICAL: Awake and alert. Motor and sensory grossly within normal limits. Five out of 5 muscle strength in all muscle groups. Normal speech. Data Data [facility] Interpretation(s) Patient is a 27-year-old white female at 39 weeks [facility] presents complaining of contraction pain. Pains began earlier this morning continued to the day. She was recently checked and was 1 cm, tonight she is 10/100/-2. heart rate tracings reactive Plan Admit for delivery Diagnosis Diagnosis: Primary Impression: Labor Disposition: Condition: Stable Lalo Cavanaugh II, MD, Bill L. II MD Dec 10, 2017 01:20
[2017-12-10] MEDS ORDERED: LIDOCAINE HCL 1% 20 ML VIAL ONE ×2 (01:21→02:21)
[2017-12-10] MEDS ORDERED: OXYTOCIN 30 UNITS-500ML PREMIX 0 ML ONE (01:22)
[2017-12-10] MEDS ORDERED: OXYTOCIN 10 UNIT/ML AMP ONE (01:26)
[2017-12-10] MEDS ORDERED: LIDOCAINE HCL 1% 50 ML VIAL I-DERMAL PRN (01:30)
[2017-12-10] MEDS ORDERED: LIDOCAINE HCL 1% 50 ML VIAL INFIL PRN (01:30)
[2017-12-10] MEDS ORDERED: OXYTOCIN 30 UNITS-500ML PREMIX 500 ML IV ONE (01:30)
[2017-12-10] MEDS ORDERED: SODIUM CHLORID 0.9% 500 ML INJ 500 ML IV PRN (01:30)
[2017-12-10] MEDS ORDERED: CITRIC ACID-SODIUM CITRATE LIQ 30 ML UDC PO SCH (01:30)
[2017-12-10] MEDS ORDERED: MINERAL OIL 10 ML VIAL TOPICAL PRN (01:30)
[2017-12-10] MEDS ORDERED: SODIUM CHLOR 0.9% 1000 ML INJ 1,000 ML IV PRN (01:40)
--- NOTE | 2017-12-10 01:43 | PD.OB.DELI ---
Weeks gestation: 39 Anesthesia: None Episiotomy: None Vaginal Delivery: Normal Presentation: Occiput anterior Nuchal Cord: None Delayed cord clamping (45 sec): Yes Infant: Female Delivery date: Dec 10, 2017 Delivery time: 01:26 One Minute : 9 Five Minute : 9 Weight: 3005 gm Placenta: Spontaneous delivery, Intact Laceration: No lacerations Estimated blood loss: 100 cc Additional Information meconium AF Lalo Cavanaugh II, MD Dec 10, 2017 01:43
[2017-12-10] MEDS ORDERED: ZOLPIDEM TARTRATE 5 MG TAB PO PRN (01:45)
[2017-12-10] MEDS ORDERED: WITCH HAZEL 50%/GLYCERIN 12.5% 40 PAD JAR TOPICAL PRN (01:45)
[2017-12-10] MEDS ORDERED: ONDANSETRON ODT 4 MG TAB PO PRN (01:45)
[2017-12-10] MEDS ORDERED: BENZOCAINE 20% TOPICAL SPRAY 60 ML CAN TOPICAL PRN (01:45)
[2017-12-10] MEDS ORDERED: SODIUM CHLORIDE 0.9% FLUSH 10 ML FLUSH IV FLUSH PRN (01:45)
[2017-12-10] MEDS ORDERED: ACETAMINOPHEN 325 MG TAB PO PRN (01:45)
[2017-12-10] MEDS ORDERED: OXYTOCIN 30 UNITS-500ML PREMIX 500 ML IV SCH (01:45)
[2017-12-10] MEDS ORDERED: ALUMINUM/MAGNESIUM/SIMETH 30 ML CUP PO PRN (01:45)
[2017-12-10 02:22] LABS: AUTOMATED NEUTROPHIL # 10.7 TH/MM3 (1.8-7.7); BASOPHIL % 0.1 % (0.0-2.0); HEMATOCRIT 31.1 % (35.0-46.0); HEMOGLOBIN 10.3 GM/DL (11.6-15.3); LYMPH % 6.2 % (9.0-44.0); LYMPHOCYTE # 0.7 TH/MM3 (1.0-4.8); MEAN CELL VOLUME 81.2 FL (80.0-100.0); MEAN CORPUSCULAR HEMOGLOBIN 26.8 PG (27.0-34.0); MEAN PLATELET VOLUME 10.1 FL (7.0-11.0); MONO % 4.5 % (0.0-8.0); MONOCYTE # 0.5 TH/MM3 (0-0.9); NEUT % 89.2 % (16.0-70.0); PLATELET COUNT 167 TH/MM3 (150-450); RED BLOOD COUNT 3.84 MIL/MM3 (4.00-5.30); RED CELL DISTRIBUTION WIDTH 15.5 % (11.6-17.2)
[2017-12-10] MEDS: oxyCODONE/ACETAMINOPHEN 5 MG/325 MG TAB PO PRN ×5 (02:30→23:04)
[2017-12-10] MEDS: IBUPROFEN 800 MG TAB PO PRN ×2 (02:30→10:56)
[2017-12-10 03:14] LABS: BILIRUBIN, URINE NEG (NEG); BLOOD, URINE SMALL (NEG); GLUCOSE,URINE TRACE mg/dL (NEG); KETONE, URINE 150 mg/dL (NEG); MUCUS URINE FEW /lpf (OCC); NITRITE,URINE NEG (NEG); URINE COLOR YELLOW (YELLW/STRAW); URINE LEUKOCYTE ESTERASE NEG (NEG)
[2017-12-10] MEDS: DOCUSATE SODIUM 50 MG/SENNA 8.6 MG TAB PO PRN (06:19)
--- NOTE | 2017-12-10 07:16 | HHI.OB ---
Subjective Post Day: 0 Remarks day # 0. AFVSS overnight. Pain well-controlled. Decreased lochia. Denies dysuria. No breast tenderness. She is feeding the baby via bottle. Appetite good. No nausea or vomiting. no flatus. no bowel movement. Ambulating well. Denies calf pain, shortness of breath, or cough. Otherwise, she is doing well this morning and has no other complaints. Objective Vitals/I&O Vital Signs Date Time Temp Pulse Resp B/P (MAP) Pulse Ox O2 Delivery O2 Flow Rate FiO2 12/10/17 03:31 67 103/51 (68) 12/10/17 03:18 18 12/10/17 03:15 75 18 112/62 (79) 12/10/17 03:01 65 104/55 (71) 12/10/17 02:45 74 18 113/64 (80) 12/10/17 02:30 84 118/69 (85) 12/10/17 02:29 93 112/74 (87) 12/10/17 02:00 84 113/70 (84) 12/10/17 01:57 97.9 12/10/17 01:47 18 12/10/17 01:46 95 124/73 (90) Objective Remarks GENERAL: Well-nourished, well-developed patient. CARDIOVASCULAR: Regular rate and rhythm without murmurs, gallops, or rubs. RESPIRATORY: Breath sounds equal bilaterally. No accessory muscle use. ABDOMEN/GI: Abdomen soft, non-tender. Fundus: Firm, non-tender at umbilicus. GENITOURINARY: Light to moderate bleeding. EXTREMITIES: No cyanosis or edema, non-tender, without signs of DVT. Medications and IVs Current Medications Medications (Trade) Dose Ordered Sig/Evans Route Start Time Stop Time Status Last Admin Lactated Ringer's 1,000 ml @ 125 mls/hr Q8H IV 12/10/17 01:20 Lactated Ringer's 1,000 ml @ 3,000 mls/hr Q20M PRN IV 12/10/17 01:20 Sodium Chloride 500 ml @ 1,000 mls/hr ONCE PRN IV 12/10/17 01:30 12/11/17 01:29 Sodium Chloride 1,000 ml @ 100 mls/hr Q10H PRN IV 12/10/17 01:40 (Xylocaine 1% Inj (50 ml)) 0.1 ml UNSCH X1 PRN I-DERMAL 12/10/17 01:30 12/13/17 01:29 (Bicitra Liq) 30 ml COPPER PLATER PO 12/10/17 01:30 12/14/17 01:29 (fentaNYL INJ) 50 mcg Q1H PRN IV PUSH 12/10/17 01:30 (fentaNYL INJ) 100 mcg Q1H PRN IV PUSH 12/10/17 01:30 (Xylocaine 1% Inj (50 ml)) 10 ml UNSCH X1 PRN INFIL 12/10/17 01:30 12/12/17 01:29 (Muri-Lube Oil) 10 ml UNSCH PRN TOPICAL 12/10/17 01:30 (NS Flush) 2 ml BID IV FLUSH 12/10/17 09:00 (NS Flush) 2 ml UNSCH PRN IV FLUSH 12/10/17 01:45 (Tylenol) 650 mg Q4H PRN PO 12/10/17 01:45 (Motrin) 800 mg Q8H PRN PO 12/10/17 01:45 12/10/17 02:30 (Percocet 5-325 Mg) 1 tab Q4H PRN PO 12/10/17 01:45 12/10/17 06:18 (Americaine 20% Top Spr) 1 spray Q4H PRN TOPICAL 12/10/17 01:45 12/10/17 06:18 (Tucks Pads) 1 applic QID PRN TOPICAL 12/10/17 01:45 12/10/17 06:18 (Natalie-Colace) 2 tab Q12H PRN PO 12/10/17 01:45 12/10/17 06:19 (Ambien) 5 mg HS PRN PO 12/10/17 01:45 (M-M-R Ii Inj) 0.5 ml ONCE ONCE SQ 12/10/17 16:00 12/10/17 16:01 (Boostrix Inj) 0.5 ml ONCE ONCE IM 12/10/17 16:00 12/10/17 16:01 (Mag-Al Plus Susp Liq) 15 ml Q8H PRN PO 12/10/17 01:45 (Zofran Odt) 4 mg Q6H PRN PO 12/10/17 01:45 Assessment/Plan Problem List: (1) Normal vaginal delivery ICD Codes: O80 - Encounter for full-term uncomplicated delivery Status: Acute Plan: 27 y/o who is PPD# 0 s/p . -Continue routine care. -Percocet and Motrin PRN pain. -Encouraged OOB. Advised pelvic rest for 6 wks. -Will need a f/u appt. within 6 wks. -Re: ctrl, she would like OCPs. -D/c tomorrow. wdw OB attending Kina Soria MD R1 Dec 10, 2017 07:16
[2017-12-10] MEDS: LACTATED RINGER'S 1000 ML INJ 1,000 ML IV SCH ×2 (09:34→17:25)
[2017-12-10] MEDS: SODIUM CHLORIDE 0.9% FLUSH 10 ML FLUSH IV FLUSH SCH (09:34)
[2017-12-10] MEDS ORDERED: MEASLES, MUMPS, RUBELLA VACCINE 0.5 ML VIAL SQ ONE (16:00)
[2017-12-10] MEDS ORDERED: DIPHTH/TETANUS/ACEL PERTUSSIS (BOOSTER) 0.5 ML VIAL/PFS IM ONE (16:00)
[2017-12-11] MEDS: oxyCODONE/ACETAMINOPHEN 5 MG/325 MG TAB PO PRN ×3 (03:01→20:14)
[2017-12-11] MEDS: IBUPROFEN 800 MG TAB PO PRN ×3 (03:01→20:15)
--- NOTE | 2017-12-11 07:25 | HHI.OB ---
Subjective Post Day: 1 Remarks day # 1. AFVSS overnight. Pain well-controlled. Decreased lochia. Denies dysuria. No breast tenderness. She is feeding the baby via bottle. Appetite good. No nausea or vomiting. She is having flatus. no bowel movement. Ambulating well. Denies calf pain, shortness of breath, or cough. Otherwise, she is doing well this morning and has no other complaints. Objective Vitals/I&O Vital Signs Date Time Temp Pulse Resp B/P (MAP) Pulse Ox O2 Delivery O2 Flow Rate FiO2 12/10/17 19:20 97.8 77 18 97/57 (70) 97 12/10/17 09:00 97.9 77 18 94/53 (67) Objective Remarks GENERAL: Well-nourished, well-developed patient. CARDIOVASCULAR: Regular rate and rhythm without murmurs, gallops, or rubs. RESPIRATORY: Breath sounds equal bilaterally. No accessory muscle use. ABDOMEN/GI: Abdomen soft, non-tender. Fundus: Firm, non-tender at umbilicus. GENITOURINARY: Light to moderate bleeding. EXTREMITIES: No cyanosis or edema, non-tender, without signs of DVT. Medications and IVs Current Medications Medications (Trade) Dose Ordered Sig/Evans Route Start Time Stop Time Status Last Admin Lactated Ringer's 1,000 ml @ 125 mls/hr Q8H IV 12/10/17 01:20 Lactated Ringer's 1,000 ml @ 3,000 mls/hr Q20M PRN IV 12/10/17 01:20 Sodium Chloride 1,000 ml @ 100 mls/hr Q10H PRN IV 12/10/17 01:40 (Xylocaine 1% Inj (50 ml)) 0.1 ml UNSCH X1 PRN I-DERMAL 12/10/17 01:30 12/13/17 01:29 (Bicitra Liq) 30 ml LEGAL NURSE CONSULTANT PO 12/10/17 01:30 12/14/17 01:29 (fentaNYL INJ) 50 mcg Q1H PRN IV PUSH 12/10/17 01:30 (fentaNYL INJ) 100 mcg Q1H PRN IV PUSH 12/10/17 01:30 (Xylocaine 1% Inj (50 ml)) 10 ml UNSCH X1 PRN INFIL 12/10/17 01:30 12/12/17 01:29 (Muri-Lube Oil) 10 ml UNSCH PRN TOPICAL 12/10/17 01:30 (NS Flush) 2 ml BID IV FLUSH 12/10/17 09:00 (NS Flush) 2 ml UNSCH PRN IV FLUSH 12/10/17 01:45 (Tylenol) 650 mg Q4H PRN PO 12/10/17 01:45 (Motrin) 800 mg Q8H PRN PO 12/10/17 01:45 12/11/17 03:01 (Percocet 5-325 Mg) 1 tab Q4H PRN PO 12/10/17 01:45 12/11/17 03:01 (Americaine 20% Top Spr) 1 spray Q4H PRN TOPICAL 12/10/17 01:45 12/10/17 06:18 (Tucks Pads) 1 applic QID PRN TOPICAL 12/10/17 01:45 12/10/17 06:18 (Natalie-Colace) 2 tab Q12H PRN PO 12/10/17 01:45 12/10/17 06:19 (Ambien) 5 mg HS PRN PO 12/10/17 01:45 (Mag-Al Plus Susp Liq) 15 ml Q8H PRN PO 12/10/17 01:45 (Zofran Odt) 4 mg Q6H PRN PO 12/10/17 01:45 (Flu (Quadrivalent) Vaccine Inj) 0.5 ml ONCE ONCE IM 12/11/17 10:00 12/11/17 10:01 Assessment/Plan Problem List: (1) Normal vaginal delivery ICD Codes: O80 - Encounter for full-term uncomplicated delivery Status: Acute Plan: 27 y/o who is PPD# 1 s/p . -Continue routine care. -Percocet and Motrin PRN pain. -Encouraged OOB. Advised pelvic rest for 6 wks. -Will need a f/u appt. within 6 wks. -Re: ctrl, she would like OCPs. -D/c today or tomorrow. [facility] attending Kina Soria MD R1 Dec 11, 2017 07:25
[2017-12-11 08:00] VITALS: BP 91/63; PULSE 60; RESP 16; TEMP 97.9; O2SAT 99
[2017-12-11] MEDS: SODIUM CHLORIDE 0.9% FLUSH 10 ML FLUSH IV FLUSH SCH ×2 (08:36→20:17)
[2017-12-11] MEDS: LACTATED RINGER'S 1000 ML INJ 1,000 ML IV SCH ×3 (08:37→20:44)
[2017-12-11] MEDS ORDERED: INFLUENZA VIRUS VACCINE (QUADRIVALENT) 0.5 ML SYR IM ONE (10:00)
[2017-12-11 20:00] VITALS: BP 101/63; PULSE 67; RESP 16; TEMP 98.2; O2SAT 98
[2017-12-11] MEDS: DOCUSATE SODIUM 50 MG/SENNA 8.6 MG TAB PO PRN (20:15)
[2017-12-12 08:00] VITALS: BP 104/60; PULSE 74; RESP 18; TEMP 97.6; O2SAT 99
--- NOTE | 2017-12-12 08:13 | HHI.OB ---
Subjective Post Day: 2 Remarks day # 2. AFVSS overnight. Pain well-controlled. Decreased lochia. Denies dysuria. No breast tenderness. She is feeding the baby via bottle. Appetite good. No nausea or vomiting. + flatus. She had a bowel movement. Ambulating well. Denies calf pain, shortness of breath, or cough. Otherwise, she is doing well this morning and has no other complaints. Objective Vitals/I&O Vital Signs Date Time Temp Pulse Resp B/P (MAP) Pulse Ox O2 Delivery O2 Flow Rate FiO2 12/11/17 20:00 67 16 101/63 (76) 98 12/11/17 20:00 98.2 Objective Remarks GENERAL: Well-nourished, well-developed patient. CARDIOVASCULAR: Regular rate and rhythm without murmurs, gallops, or rubs. RESPIRATORY: Breath sounds equal bilaterally. No accessory muscle use. ABDOMEN/GI: Abdomen soft, non-tender. Fundus: Firm, non-tender at umbilicus. GENITOURINARY: Light to moderate bleeding. EXTREMITIES: No cyanosis or edema, non-tender, without signs of DVT. Medications and IVs Current Medications Medications (Trade) Dose Ordered Sig/Evans Route Start Time Stop Time Status Last Admin Lactated Ringer's 1,000 ml @ 125 mls/hr Q8H IV 12/10/17 01:20 Lactated Ringer's 1,000 ml @ 3,000 mls/hr Q20M PRN IV 12/10/17 01:20 Sodium Chloride 1,000 ml @ 100 mls/hr Q10H PRN IV 12/10/17 01:40 (Xylocaine 1% Inj (50 ml)) 0.1 ml UNSCH X1 PRN I-DERMAL 12/10/17 01:30 12/13/17 01:29 (Bicitra Liq) 30 ml DATA MANAGEMENT ENGINEER PO 12/10/17 01:30 12/14/17 01:29 (fentaNYL INJ) 50 mcg Q1H PRN IV PUSH 12/10/17 01:30 (fentaNYL INJ) 100 mcg Q1H PRN IV PUSH 12/10/17 01:30 (Muri-Lube Oil) 10 ml UNSCH PRN TOPICAL 12/10/17 01:30 (NS Flush) 2 ml BID IV FLUSH 12/10/17 09:00 (NS Flush) 2 ml UNSCH PRN IV FLUSH 12/10/17 01:45 (Tylenol) 650 mg Q4H PRN PO 12/10/17 01:45 (Motrin) 800 mg Q8H PRN PO 12/10/17 01:45 12/11/17 20:15 (Percocet 5-325 Mg) 1 tab Q4H PRN PO 12/10/17 01:45 12/11/17 20:14 (Americaine 20% Top Spr) 1 spray Q4H PRN TOPICAL 12/10/17 01:45 12/10/17 06:18 (Tucks Pads) 1 applic QID PRN TOPICAL 12/10/17 01:45 12/10/17 06:18 (Natalie-Colace) 2 tab Q12H PRN PO 12/10/17 01:45 12/11/17 20:15 (Ambien) 5 mg HS PRN PO 12/10/17 01:45 (Mag-Al Plus Susp Liq) 15 ml Q8H PRN PO 12/10/17 01:45 (Zofran Odt) 4 mg Q6H PRN PO 12/10/17 01:45 Assessment/Plan Problem List: (1) Normal vaginal delivery ICD Codes: O80 - Encounter for full-term uncomplicated delivery Status: Acute Plan: 27 y/o who is PPD# 2 s/p . -Continue routine care. -Percocet and Motrin PRN pain. -Encouraged OOB. Advised pelvic rest for 6 wks. -Will need a f/u appt. within 6 wks. -Re: ctrl, she would like OCPs. -D/c today. [facility] attending Kina Soria MD R1 Dec 12, 2017 08:13
[2017-12-12] MEDS: oxyCODONE/ACETAMINOPHEN 5 MG/325 MG TAB PO PRN (08:18)
[2017-12-12] MEDS: IBUPROFEN 800 MG TAB PO PRN (08:18)
[2017-12-12] MEDS ORDERED: IBUP1TAB7 PO (08:18)
--- NOTE | 2017-12-12 08:18 | HHI.DCPOC ---
Discharge Care Plan Diagnosis: (1) Normal vaginal delivery Report Symptoms to Your Doctor -Temperature above 100.5 degrees -Redness, of incision or excessive or foul smelling drainage -Unusual pain or calf pain -Increased vaginal bleeding -Painful or difficulty urinating -Feelings of extreme sadness or anxiety after 2 weeks Goals to Promote Your Health * To prevent worsening of your condition and complications * To maintain your health at the optimal level Directions to Meet Your Goals Take your medications as prescribed Follow your dietary instruction Follow activity as directed Ensure plenty of rest for recovery Drink fluids for hydration Keep your appointments as scheduled Take your immunizations and boosters as scheduled If your symptoms worsen call your PCP, if no PCP go to Urgent Care Center or Emergency Room Smoking is Dangerous to Your Health. Avoid second hand smoke Call the 24-hour crisis hotline for domestic abuse at Kina Soria MD R1 Dec 12, 2017 08:18
== END 2017-12-12 16:36 | disposition home or self-care (01) | DRG 775 ==
LOC: HOBED 01:02 → H2EA 01:14 → H1EA 03:42
PROVIDERS: ADMIT Obstetrics & Gynecology Maternal & Fetal Medicine; ATTEND Obstetrics & Gynecology Maternal & Fetal Medicine
PROC: 10E0XZZ Delivery of Products of Conception, External Approach (ICD-10-PCS; principal; 2017-12-10)
DX: O77.0 Labor and delivery complicated by meconium in amniotic fluid (principal); Z37.0 Single live birth; Z3A.39 39 weeks gestation of pregnancy; Z23 Encounter for immunization
CPT/HCPCS: 80307; 81001; 85025; 86900; 86901; 90686; 90715; J2590; Q2038